=== PATIENT | female | born 1985 | race Caucasian/White ===

== ENCOUNTER 2022-02-09 15:06 | Observation (INO) | payer OTHER ==
[~2022-02-09] VITALS: Ht 175.3 cm; Wt 88.2 kg
[2022-02-09 17:26] LABS: BASO % 0.3 % (0.0-2.0); EOS # 0.3 K/mm3 (0.0-0.7); EOS % 2.4 % (0.0-4.0); GRAN # 7.4 K/mm3 (1.4-6.5); HEMOGLOBIN 12.2 g/dl (12.5-16.0); LYMPH # 2.2 K/mm3 (1.2-3.4); LYMPH % 20.7 % (20.0-51.0); MEAN CELL VOLUME 93 fl (80.0-100.0); MEAN CORPUSCULAR HEMOGLOBIN 31 pg (27-31); MEAN CORPUSCULAR HGB CONC 33 g/dl (33.0-37.0); MONO # 0.8 K/mm3 (0.1-0.6); MONO % 7.2 % (1.7-9.3); PLATELET COUNT 154 K/mm3 (130-400); RED BLOOD COUNT 3.99 M/mm3 (4.10-5.30); REDCELL DISTRIBUTION WIDTH-CV 12.1 % (11.5-14.5)
[2022-02-09 17:46] LABS: ALANINE AMINOTRANSFERASE 25 U/L (0-55); ALBUMIN 3.2 gm/dL (3.5-5.0); ALKALINE PHOSPHATASE 65 U/L (40-150); ANION GAP 8 mmol/L (7-16); AST,SGOT 12 U/L (5-34); BILIRUBIN,TOTAL 0.6 mg/dL (0.2-1.2); BLOOD UREA NITROGEN 17 mg/dL (7-19); CALCIUM 8.6 mg/dL (8.4-10.2); CARBON DIOXIDE 22 mmol/L (22-29); CHLORIDE 111 mmol/L (98-107); CREATININE, serum 0.74 mg/dL (0.57-1.11); GLUCOSE 90 mg/dL (70-99); POTASSIUM 3.8 mmol/L (3.5-4.5); SODIUM 141 mmol/L (136-145); TOTAL PROTEIN 6.6 gm/dL (6.2-8.1)
[2022-02-09 17:57] LABS: TROPONIN-I < 0.010 ng/mL (0.00-0.033)
[2022-02-09 19:43] LABS: INR 1.2 (0.8-3.0); PROTHROMBIN TIME 14.3 SECONDS (9.7-12.8)
[2022-02-09] MEDS ORDERED: CENTRUM1 TA1 PO (19:47)
[2022-02-09] MEDS ORDERED: PROBIOTIC BLEN1 EACH PO (19:49)
[2022-02-09 20:34] LABS: PARTIAL THROMBOPLASTIN TIME 31.5 SECONDS (26.0-37.0)
[2022-02-09 23:11] VITALS: BP 87/63; PULSE 72; TEMP 98.5
[2022-02-10 03:17] VITALS: BP 109/52; PULSE 83; TEMP 98.1
--- NOTE | 2022-02-10 07:25 | NUR ---
PRN NORCO GIVEN FOR ACHING "RIGHT SIDE AND SHOULDER PAIN" RATED A 7/10.
[2022-02-10 08:00] VITALS: BP 102/53; PULSE 62; TEMP 97.5
[2022-02-10 08:07] LABS: BASO % 0.4 % (0.0-2.0); EOS # 0.3 K/mm3 (0.0-0.7); EOS % 2.9 % (0.0-4.0); GRAN % 64.1 % (42.2-75.2); HEMOGLOBIN 10.6 g/dl (12.5-16.0); LYMPH # 2.3 K/mm3 (1.2-3.4); MEAN CELL VOLUME 95 fl (80.0-100.0); MEAN CORPUSCULAR HEMOGLOBIN 30 pg (27-31); MEAN CORPUSCULAR HGB CONC 32 g/dl (33.0-37.0); MEAN PLATELET VOLUME 11.3 fl (7.4-10.4); MONO # 0.8 K/mm3 (0.1-0.6); MONO % 8.3 % (1.7-9.3); PLATELET COUNT 142 K/mm3 (130-400); RED BLOOD COUNT 3.49 M/mm3 (4.10-5.30); REDCELL DISTRIBUTION WIDTH-CV 12.5 % (11.5-14.5)
[2022-02-10 08:08] LABS: HEMATOCRIT 33.2 % (37.0-47.0)
[2022-02-10 08:23] LABS: CALCIUM 7.9 mg/dL (8.4-10.2); CREATININE, serum 0.67 mg/dL (0.57-1.11); POTASSIUM 3.6 mmol/L (3.5-4.5)
--- NOTE | 2022-02-10 09:01 | NUR ---
ROMA met with the patient to discuss discharge. The patient lives in [place] with her , Jamison (ph#[phone]), and their five children. She reports independence with ADLs and does not have any DME. The patient's primary care provider is Gayathri Florence APRN and she receives her medications from [facility]. The patient does not have a DPOA-HC and she was not interested in completing one at this time. The patient plans to return home with her family upon discharge. No additional needs at this time. *Discharge plan: home with family*
[2022-02-10 12:02] VITALS: BP 107/43; PULSE 69; TEMP 97.5
--- NOTE | 2022-02-10 13:01 | NUR ---
Initial visit; Patient appears very uncomfortable and not doing well. She did say she would like Reclamation Worker to keep her in her prayers. Reclamation Worker also offered God's blessings and mentioned if at any time she would like Reclamation Worker to pray with her just to let the nurse know. She thanked 6th grade teacher.
[2022-02-10 15:21] VITALS: BP 101/44; PULSE 62; TEMP 98
--- NOTE | 2022-02-10 16:09 | NUR ---
Scheduled medication given. Shift assessment performed. BP's soft but stable. Remainder of VSS. Patient A&O. No requiring an O2 at this time. Denies SOB. Patient c/o of right sided pain that radiates to shoulder. PRN pain medication given as ordered. Heparin gtt and fluids running as ordered. Patient denies any further pain, discofort, SOA, or needs at this time. Call light in reach.
[2022-02-10 20:02] VITALS: BP 106/52; PULSE 68; TEMP 982
--- NOTE | 2022-02-10 22:10 | NUR ---
PATIENT LAYING IN BED WATCHING TELEVISION AT THIS TIME. PATIENT INFORMS THIS NURSE SHE HAS NOT RECEIVED A DINNER TRAY. THIS NURSE INFORMS PATIENT SHE WILL OBTAIN A DINNER FOR HER, EXCUSED HERSELF FROM PATIENT ROOM AND WENT TO KITCHEN TO OBTAIN TURKEY BOX MEAL. PATIENT EXPRESSES APPRECIATION WHEN THIS NURSE RETURNED WITH TURKEY BOX. PATIENT DENIES PAIN, FURTHER NEEDS OR CONCERNS AT THIS TIME. PATIENT HAS CALL LIGHT IN HAND AND ENCOURAGED TO USE WITH ANY NEEDS OR CONCERNS. PATIENT STATES UNDERSTANDING.
[2022-02-10 23:34] VITALS: BP 109/55; PULSE 77; TEMP 98
[2022-02-11 04:05] VITALS: BP 100/50; PULSE 66; TEMP 98.4
[2022-02-11 08:00] VITALS: BP 113/56; PULSE 79; TEMP 98.2
[2022-02-11] MEDS ORDERED: ELIQUIS 5MG PO (09:47)
== END 2022-02-11 10:56 | disposition home or self-care (01) ==
LOC: COL.ER 15:06 → MEDICAL 18:59
PROVIDERS: Nurse Practitioner; Nurse Practitioner Family; ADMIT Internal Medicine
DX: I26.99 Other pulmonary embolism without acute cor pulmonale (principal); D64.9 Anemia, unspecified; Z79.01 Long term (current) use of anticoagulants; F17.210 Nicotine dependence, cigarettes, uncomplicated
CPT/HCPCS: G0378; J1644; J2060; J2270; J7030; Q9967